=== PATIENT | female | born 1995 | race Caucasian/White ===

== ENCOUNTER 2017-11-17 20:08 | Emergency (ER) | payer SELFPAY ==
--- NOTE | 2017-11-17 20:22 | PDOC ---
Rapid Medical Evaluation Time Seen by Provider: 11/17/17 20:17 Medical Evaluation: 11/17/17 20:17 I have performed a brief in-person evaluation of this patient. The patient presents with a chief complaint of: 6 wks , told she had twins on ultrasound yesterday at clinic but no FHT, bad abd cramping today, denies vag bleeding Pertinent physical exam findings: nothing I have ordered the following: beta hcg, TVUS The patient will proceed to the ED for further evaluation. Discharge Disposition - Diagnosis Threatened - Referrals - Patient Instructions - Post Discharge Activity
[2017-11-17 20:23] VITALS: BP 119/59; PULSE 98; TEMP 99.3; BMI 22.4
--- NOTE | 2017-11-17 21:10 | PDOC ---
History of Present Illness <Joelle Rede - Last Filed: 11/18/17 00:05> - General History Source: Patient Exam Limitations: No Limitations - History of Present Illness Initial Comments: 11/18/17 01:23 Patient is a 22 year old female, who is 6 weeks , with no significant past medical history who presents to the ED with complaints of vaginal bleeding. [facility] She states she was told she was with twins and no heart beats were found, and that they would not progress. Patient reports experiencing pelvic cramping this morning prompting her to come into the ED for evaluation. She denies any vaginal bleeding but states she has been experiencing strong urine odor recently. Patient states she is here for clarification of her condition. Denies vaginal bleeding, vaginal discharge. Denies chest pain, SOB. Denies nausea, vomiting. Denies fever, chills. Denies contact with sick individuals, out of state travel. Denies any other symptoms. Allergies: None Social history: Current smoker (1 cigarette per day). No alcohol. No illicit drugs. Surgical history: None PMD: None <Nickolas Luna - Last Filed: 11/18/17 01:23> - General Chief Complaint: Pain Stated Complaint: VAGINAL BLEEDING Time Seen by Provider: 11/17/17 20:17 Past History - Past Medical History COPD: No - Suicide/Smoking/Psychosocial Hx Smoking History: Current every day smoker Have you smoked in the past 12 months: No Number of Cigarettes Smoked Daily: 1 Information on smoking cessation initiated: No Hx Alcohol Use: No Drug/Substance Use Hx: No Substance Use Type: None <Joelle Reed - Last Filed: 11/18/17 00:05> <Nickolas Luna - Last Filed: 11/18/17 01:23> - Past Medical History Allergies/Adverse Reactions: Allergies Allergy/AdvReac Type Severity Reaction Status Date / Time No Known Allergies Allergy Verified 11/17/17 21:04 Home Medications: Ambulatory Orders Nitrofurantoin Monohyd/M-Cryst [Macrobid -] 100 mg PO BID #14 capsule 11/17/17 Review of Systems - Review of Systems Able to Perform ROS?: Yes Comments:: 11/18/17 01:23 GENERAL/CONSTITUTIONAL: No fever or chills. No weakness. HEAD, EYES, EARS, NOSE AND THROAT: No change in vision. No ear pain or discharge. No sore throat. GASTROINTESTINAL: No nausea, vomiting, diarrhea or constipation. GENITOURINARY: No dysuria, frequency, or change in urination. CARDIOVASCULAR: No chest pain or shortness of breath. RESPIRATORY: No cough, wheezing, or hemoptysis. MUSCULOSKELETAL: +pelvic cramping. No joint or muscle swelling. No neck or back pain. SKIN: No rash NEUROLOGIC: No headache, vertigo, loss of consciousness, or change in strength/ sensation. ENDOCRINE: No increased thirst. No abnormal weight change. HEMATOLOGIC/LYMPHATIC: No anemia, easy bleeding, or history of blood clots. ALLERGIC/IMMUNOLOGIC: No hives or skin allergy. All Other Systems: Reviewed and Negative <Nickolas Luna - Last Filed: 11/18/17 01:23> *Physical Exam - Vital Signs Last Vital Signs Temp Pulse Resp BP Pulse Ox 99.3 F 98 H 18 119/59 100 11/17/17 20:19 11/17/17 20:19 11/17/17 20:19 11/17/17 20:19 11/17/17 20:19 <Joelle Reed - Last Filed: 11/18/17 00:05> - Vital Signs Last Vital Signs Temp Pulse Resp BP Pulse Ox 99.3 F 98 H 18 119/59 100 11/17/17 20:19 11/17/17 20:19 11/17/17 20:19 11/17/17 20:19 11/17/17 20:19 - Physical Exam Comments: 11/18/17 01:23 GENERAL: Awake, alert, and fully oriented, in no acute distress HEAD: No signs of trauma EYES: PERRLA, EOMI, sclera anicteric, conjunctiva clear ENT: Auricles normal inspection, hearing grossly normal, nares patent, oropharynx clear without exudates. Moist mucosa NECK: Normal ROM, supple, no lymphadenopathy, JVD, or masses LUNGS: Breath sounds equal, clear to auscultation bilaterally. No wheezes, and no crackles HEART: Regular rate and rhythm, normal S1 and S2, no murmurs, rubs or gallops ABDOMEN: Soft, nontender, normoactive bowel sounds. No guarding, no rebound. No masses PELVIC: +Cervix closed. +White discharge. No adnexal tenderness. EXTREMITIES: Normal range of motion, no edema. No clubbing or cyanosis. No cords, erythema, or tenderness NEUROLOGICAL: Cranial nerves II through XII grossly intact. Normal speech, normal gait SKIN: Warm, Dry, normal turgor, no rashes or lesions noted. <Clara Lunaew - Last Filed: 11/18/17 01:23> ED Treatment Course - LABORATORY CBC & Chemistry Diagram: 11/17/17 21:25 11/17/17 21:10 <Joelle Reed - Last Filed: 11/18/17 00:05> - LABORATORY CBC & Chemistry Diagram: 11/17/17 21:25 11/17/17 21:10 - ADDITIONAL ORDERS Additional order review: Laboratory Results 11/17/17 11/17/17 11/17/17 21:25 21:15 21:10 Sodium 138 Potassium 3.8 Chloride 106 Carbon Dioxide 25 Anion Gap 7 L BUN 9 Creatinine 0.5 L Creat Clearance w eGFR > 60 Random Glucose 79 Calcium 8.8 Total Bilirubin 0.4 AST 13 L ALT 19 Alkaline Phosphatase 78 Total Protein 7.3 Albumin 4.0 Beta HCG, Quant Urine Color Yellow Urine Appearance Clear Urine pH 6.0 Ur Specific [place] 1.028 Urine Protein Negative Urine Glucose (UA) Negative Urine Ketones 1+ H Urine Blood Negative Urine Nitrite Negative Urine Bilirubin Negative Urine Urobilinogen 2.0 H Ur Leukocyte Esterase Trace Urine WBC (Auto) 7 Urine RBC (Auto) 20 Ur Epithelial Cells Few Urine Mucus Rare Blood Type O POSITIVE Antibody Screen Negative 11/17/17 21:10 Sodium Potassium Chloride Carbon Dioxide Anion Gap BUN Creatinine Creat Clearance w eGFR Random Glucose Calcium Total Bilirubin AST ALT Alkaline Phosphatase Total Protein Albumin Beta HCG, Quant 11267.4 Urine Color Urine Appearance Urine pH Ur Specific [place] Urine Protein Urine Glucose (UA) Urine Ketones Urine Blood Urine Nitrite Urine Bilirubin Urine Urobilinogen Ur Leukocyte Esterase Urine WBC (Auto) Urine RBC (Auto) Ur Epithelial Cells Urine Mucus Blood Type Antibody Screen 11/17/17 21:25 RBC 4.32 MCV 95.7 MCHC 33.3 RDW 13.0 MPV 9.3 Neutrophils % 74.0 Lymphocytes % 17.9 Monocytes % 6.7 Eosinophils % 0.7 Basophils % 0.7 - Medications Given in the ED: ED Medications Discontinued Medications Generic Name Dose Route Start Last Admin Trade Name Ramona PRN Reason Stop Dose Admin Nitrofurantoin Macrocrystals 100 mg 11/17/17 23:45 11/17/17 23:48 Macrodantin - PO 100 mg ONCE ROSALIO Administration <Nickolas Luna - Last Filed: 11/18/17 01:23> Medical Decision Making - Medical Decision Making 11/17/17 23:36 a/p: 22yo with demise in a twin per clinic yesterday -cramping today, no bleeding -will check labs, pelvic u/s -will check UA 11/17/17 23:36 labs reviewed. ultrasound shows demise discussed expectant management discussed need for abx given ua results discussed all reasons to return to the ED and need for follow up with her [facility] pt verbalizes understanding of all instructions 11/18/17 00:05 o+ on blood bank stable for d/c to home <Joelle Reed - Last Filed: 11/18/17 00:05> *DC/Admit/Observation/Transfer - Discharge Dispostion Admit: No - Attestations Physician Attestion: 11/18/17 00:07 I, Dr. Joelle Reed DO, attest that this document has been prepared under my direction and personally reviewed by me in its entirety. I further attest, that it accurately reflects all work, treatment, procedures and medical decision -making performed by me. <Joelle Reed - Last Filed: 11/18/17 00:05> - Attestations Scribe Attestion: 11/18/17 01:23 Documentation prepared by Nickolas Luna, acting as medical doctor nuclear medicine for Joelle Reed DO, MD/. <Nickolas Luna - Last Filed: 11/18/17 01:23> Diagnosis at time of Disposition: Threatened , demise - Discharge Dispostion Disposition: HOME Condition at time of disposition: Stable - Prescriptions Prescriptions: Nitrofurantoin Monohyd/M-Cryst [Macrobid -] 100 mg PO BID #14 capsule - Referrals Referrals: Padmini Castro MD [Staff Physician] - - Patient Instructions Printed Discharge Instructions: DI for Miscarriage Additional Instructions: Please follow up with the [facility]. Please have a repeat beta hcg in 1 week. Please return to the ED for any further concerns. If you are bleeding more than 2 pads per hour for more than 2 hours please return to the ED. Please follow up with your [facility].
[2017-11-17 21:34] LABS: URINE APPEARANCE CLEAR; URINE BILIRUBIN NEGATIVE (NEGATIVE); URINE BLOOD NEGATIVE (NEGATIVE); URINE COLOR YELLOW; URINE GLUCOSE (UA) NEGATIVE (NEGATIVE); URINE KETONE 1+ (NEGATIVE); URINE LEUK ESTERASE TRACE (NEGATIVE); URINE NITRITE NEGATIVE (NEGATIVE); URINE PROTEIN NEGATIVE (NEGATIVE)
[2017-11-17 21:41] LABS: BASO % 0.7 % (0-2.0); EOS % 0.7 % (0-4.5); HEMATOCRIT 41.3 % (32.4-45.2); HEMOGLOBIN 13.8 GM/dL (10.7-15.3); LYMPH % 17.9 % (8-40); MCH 31.9 pg (25.7-33.7); MCHC 33.3 g/dl (32.0-36.0); MEAN CELL VOLUME 95.7 fl (80-96); MEAN PLT VOLUME 9.3 fl (7.5-11.1); MONO % 6.7 % (3.8-10.2); PLATELET COUNT 262 K/MM3 (134-434); RBC 4.32 M/mm3 (3.60-5.2)
[2017-11-17 21:49] LABS: EPI CELLS FEW /HPF (FEW); URINE MUCUS RARE
[2017-11-17 22:19] LABS: ALK PHOS 78 U/L (45-117); ANION GAP 7 (8-16); BILIRUBIN,TOTAL 0.4 mg/dL (0.2-1.0); BLOOD UREA NITROGEN 9 mg/dL (7-18); CALCIUM 8.8 mg/dL (8.5-10.1); CHLORIDE 106 mmol/L (98-107); CO2 25 mmol/L (21-32); CREATININE 0.5 mg/dL (0.55-1.02); GLUCOSE,RANDOM 79 mg/dL (74-106); POTASSIUM 3.8 mmol/L (3.5-5.1); SGOT/AST 13 U/L (15-37); SGPT/ALT 19 U/L (12-78); SODIUM 138 mmol/L (136-145); TOT PROT 7.3 g/dl (6.4-8.2)
[2017-11-17] MEDS ORDERED: NITROFURANTOIN MACROCRYSTAL 50 MG CAPSULE (FP) ONE (23:44)
[2017-11-17] MEDS ORDERED: NITROFURANTOIN MACROCRYSTAL 50 MG CAPSULE (FP) PO SCH (23:45)
== END 2017-11-18 00:18 | disposition home or self-care (01) ==
LOC: JER 20:08
DX: O26.891 Other specified pregnancy related conditions, first trimester (principal); O02.1 Missed abortion; Z3A.01 Less than 8 weeks gestation of pregnancy
CPT/HCPCS: 36415; 76817-TC; 80053; 81003; 81015; 84702; 85025; 86850; 86900; 86901; 99282-25

== ENCOUNTER 2017-11-30 21:03 | Emergency (ER) | payer SELFPAY ==
--- NOTE | 2017-11-30 21:41 | PDOC ---
Rapid Medical Evaluation Time Seen by Provider: 11/30/17 21:35 Medical Evaluation: Allergies Allergy/AdvReac Type Severity Reaction Status Date / Time No Known Allergies Allergy Verified 11/17/17 21:04 11/30/17 21:36 I have performed a brief in-person evaluation of this patient. The patient presents with a chief complaint of: pelvic pain x 2 days worse on left radiating to back, , currently , LMP 11/6, told she was having miscarriage 2 weeks ago but has not bled Pertinent physical exam findings: tenderness to LLQ I have ordered the following: labs, ultrasound The patient will proceed to the ED for further evaluation. Discharge Disposition - Diagnosis Pelvic pain during - Referrals - Patient Instructions - Post Discharge Activity
[2017-11-30 21:44] VITALS: BP 94/58; PULSE 91; TEMP 98.8; BMI 23.4
[2017-11-30 22:17] LABS: BASO % 0.7 % (0-2.0); EOS % 2.3 % (0-4.5); HEMATOCRIT 39.7 % (32.4-45.2); HEMOGLOBIN 13.5 GM/dL (10.7-15.3); LYMPH % 24.2 % (8-40); MCH 32.3 pg (25.7-33.7); MCHC 33.9 g/dl (32.0-36.0); MEAN CELL VOLUME 95.3 fl (80-96); MEAN PLT VOLUME 9.2 fl (7.5-11.1); MONO % 6.9 % (3.8-10.2); NEUT % 65.9 % (42.8-82.8); PLATELET COUNT 264 K/MM3 (134-434); RBC 4.17 M/mm3 (3.60-5.2); RDW 12.7 % (11.6-15.6); WHITE BLOOD COUNT 7.3 K/mm3 (4.0-10.0)
[2017-11-30 22:32] LABS: INR 1.05 (0.82-1.09); PROTHROMBIN TIME (PATIENT) 11.9 SEC (9.98-11.88)
[2017-11-30 22:35] LABS: ACTIVATED PTT 35.4 SECONDS (26.9-34.4)
[2017-11-30 23:18] LABS: ALBUMIN 3.7 g/dl (3.4-5.0); ANION GAP 9 (8-16); BLOOD UREA NITROGEN 8 mg/dL (7-18); CHLORIDE 106 mmol/L (98-107); CO2 26 mmol/L (21-32); CREATININE 0.6 mg/dL (0.55-1.02); GLUCOSE,RANDOM 82 mg/dL (74-106); POTASSIUM 3.9 mmol/L (3.5-5.1); SGOT/AST 11 U/L (15-37); SGPT/ALT 17 U/L (12-78); SODIUM 141 mmol/L (136-145); TOT PROT 6.9 g/dl (6.4-8.2)
[2017-11-30 23:33] LABS: ALK PHOS 79 U/L (45-117); BILIRUBIN,TOTAL 0.2 mg/dL (0.2-1.0)
--- NOTE | 2017-11-30 23:52 | PDOC ---
History of Present Illness - General Chief Complaint: Pain Stated Complaint: REVISIT Time Seen by Provider: 11/30/17 21:35 - History of Present Illness Initial Comments: 11/30/17 23:51 CHIEF COMPLAINT: miscarriage HISTORY OF PRESENT ILLNESS: 22 yo female presents to ED with pelvic pain x 2 days, worse on the left side with radiation to back. Patient reports she was seen in this ED two weeks ago and was told she was having a miscarriage and that she "would pass it and have some bleeding," but as of today has not had any vaginal bleeding. , currently , LMP 11/6, told she was having miscarriage 2 weeks ago but has not bled at all. No recent travel or sick contacts. PAST MEDICAL HISTORY: Denies past medical history FAMILY HISTORY: Denies SOCIAL HISTORY: Denies tobacco, alcohol, illicit drug use. SURGICAL HISTORY: Denies ALLERGIES: No known drug allergies REVIEW OF SYSTEMS as per HPI PHYSICAL EXAM General Appearance: Well-appearing, appropriately dressed. No apparent distress. HEENT: EOMI, PERRLA. No conjunctival pallor. No photophobia, scleral icterus. Respiratory/Chest: Lungs CTAB. Cardiovascular: RRR. S1, S2. Gastrointestinal/Abdominal: TTP to LLQ. Normal bowel sounds. Abdomen soft, non- distended. No tenderness or rebound tenderness. No organomegaly, pulsatile mass, guarding, hernia, hepatomegaly, splenomegaly. Musculoskeletal/Extremities: Normal inspection. FROM of all extremities, normal capillary refill. Pelvis Stable. No CVA tenderness. No tenderness to extremities, pedal edema, swelling, erythema or deformity. Integumentary: Appropriate color, dry, warm. No cyanosis, erythema, jaundice or rash Neurologic: cyber systems engineer II-XII intact. Fully oriented, alert. Appropriate mood/affect. Motor strength 5/5. No appreciable EOM palsy, facial droop or sensory deficit. Past History - Past Medical History Allergies/Adverse Reactions: Allergies Allergy/AdvReac Type Severity Reaction Status Date / Time No Known Allergies Allergy Verified 11/30/17 21:39 Home Medications: Ambulatory Orders Nitrofurantoin Monohyd/M-Cryst [Macrobid -] 100 mg PO BID #14 capsule 11/17/17 Ibuprofen 800 mg PO TID PRN #21 tablet 12/01/17 Misoprostol [Cytotec] 200 mcg PO TID #6 tablet 12/01/17 COPD: No Other medical history: Pt denies - Suicide/Smoking/Psychosocial Hx Smoking History: Never smoked Have you smoked in the past 12 months: No Number of Cigarettes Smoked Daily: 1 Information on smoking cessation initiated: No Hx Alcohol Use: No Drug/Substance Use Hx: No Substance Use Type: None *Physical Exam - Vital Signs Last Vital Signs Temp Pulse Resp BP Pulse Ox 98.8 F 91 H 20 94/58 96 11/30/17 21:40 11/30/17 21:40 11/30/17 21:40 11/30/17 21:40 11/30/17 21:40 ED Treatment Course - LABORATORY CBC & Chemistry Diagram: 11/30/17 21:55 11/30/17 21:55 - ADDITIONAL ORDERS Additional order review: Laboratory Results 11/30/17 11/30/17 11/30/17 21:55 21:55 21:55 PT with INR 11.90 H INR 1.05 PTT (Actin FS) 35.4 H Sodium 141 Potassium 3.9 Chloride 106 Carbon Dioxide 26 Anion Gap 9 BUN 8 Creatinine 0.6 Creat Clearance w eGFR > 60 Random Glucose 82 Calcium 9.0 Total Bilirubin 0.2 D AST 11 L ALT 17 Alkaline Phosphatase 79 Total Protein 6.9 Albumin 3.7 Beta HCG, Quant 92056.1 Blood Type O POSITIVE Antibody Screen Negative 11/30/17 21:55 RBC 4.17 MCV 95.3 MCHC 33.9 RDW 12.7 MPV 9.2 Neutrophils % 65.9 Lymphocytes % 24.2 D Monocytes % 6.9 Eosinophils % 2.3 D Basophils % 0.7 - RADIOLOGY Radiology Studies Ordered: Category Date Time Status TRANSVAGINAL US PREG [US] Stat Ultrasound 11/30/17 21:39 Ordered Medical Decision Making - Medical Decision Making 12/02/17 03:20 22 yo female presents to ED with pelvic pain x 2 days, worse on the left side with radiation to back. -CBC, CMP, PT/PTT/INR, T&S, beta hcg -TVUS US consistent with failed . beta trending down from previous of 2 weeks prior. Discussed case with quotation checker OB Misha. Will give patient 200 mcg Cytotec in ED with rx for same med TID w/ follow up in clinic. Advised patient to take medication as prescribed and follow up with OB within the next 48 hours. Advised patient of signs and symptoms for return to ED. Patient verbalized understanding and agrees to plan. 12/02/17 03:21 *DC/Admit/Observation/Transfer Diagnosis at time of Disposition: Pelvic pain during , Incomplete miscarriage - Discharge Dispostion Disposition: HOME Condition at time of disposition: Stable Admit: No - Prescriptions Prescriptions: Ibuprofen 800 mg PO TID PRN #21 tablet PRN Reason: cramping Misoprostol [Cytotec] 200 mcg PO TID #6 tablet - Referrals Referrals: Carol Cabral MD [Staff Physician] - - Patient Instructions Printed Discharge Instructions: DI for Miscarriage Additional Instructions: Take medications as prescribed. As discussed, you MUST follow up with Dr. Cabral in the office within the next 48 hours. You will experience abdominal cramping and passing of blood clots; if you develop lightheadedness, dizziness, shortness of breath, or palpitations, please return to the ER. - Post Discharge Activity Forms/Work/School Notes: Back to Work
[2017-12-01 00:37] LABS: URINE APPEARANCE CLOUDY; URINE BILIRUBIN NEGATIVE (NEGATIVE); URINE BLOOD NEGATIVE (NEGATIVE); URINE COLOR YELLOW; URINE GLUCOSE (UA) NEGATIVE (NEGATIVE); URINE KETONE NEGATIVE (NEGATIVE); URINE LEUK ESTERASE NEGATIVE (NEGATIVE); URINE NITRITE NEGATIVE (NEGATIVE); URINE PROTEIN NEGATIVE (NEGATIVE); URINE UROBILINOGEN NEGATIVE mg/dL (0.2-1.0)
[2017-12-01] MEDS ORDERED: IBUPROFEN 400 MG TABLET (FP) PO ONE ×2 (01:39→01:41)
[2017-12-01] MEDS ORDERED: MISOPROSTOL 200 MCG TABLET PO ONE (01:56)
[2017-12-01] MEDS ORDERED: MISOPROSTOL 200 MCG TABLET PO SCH (08:00)
--- NOTE | 2017-12-03 07:46 | PDOC ---
Patient Follow-up (Call Back) - Post ED Follow - Up Condition at time of discharge: Stable Disposition at time of original discharge: HOME Reason for Call Back: Abnwl. Microbiology (prelim ucx +, no sen yet Pt was seen in ED for pelvic pain in the setting of spontaneous AB. Called patient, complaining of urinary frequency, otherwise feels fine. Prescription for Macrobid sent to pharmacy. Will follow-up on final urine culture report)
== END 2017-12-01 02:28 | disposition home or self-care (01) ==
LOC: JER 21:03
DX: O26.891 Other specified pregnancy related conditions, first trimester (principal); O02.0 Blighted ovum and nonhydatidiform mole; Z3A.01 Less than 8 weeks gestation of pregnancy
CPT/HCPCS: 36415; 76817-TC; 80053; 81003; 84702; 85025; 85610; 85730; 86850; 86900; 86901; 87077; 87086; 87186; 99283-25